=== PATIENT | female | born 1980 | race Caucasian/White ===

== ENCOUNTER 2018-11-12 00:51 | Observation (INO) | payer MEDICAID, OTHER ==
[~2018-11-12] VITALS: Ht 160 cm; Wt 73.4 kg
--- NOTE | 2018-11-12 01:55 | ERD ---
ER Documentation Chief Complaint Chief Complaint DX ECTOPIC PREGNENCY AT [facility].LL PELVIC PAIN HPI This is a 38-year-old female who presents emergency department with complaints of pelvic pain. Stated that she was diagnosed with ectopic at another [facility] in [facility]. Stated that her OB suspected that she has an ectopic that is why she was sent to the ER. The ER discharge her and was told to come here at [facility] because her OB works here. LMP: 09/11/2018. A0. ROS All systems reviewed and are negative except as per history of present illness. Medications Home Meds No Active Prescriptions or Reported Meds Allergies Allergies: Coded Allergies: No Known Allergy (Unverified , 11/12/18) Physical Exam Vitals Vital Signs Date Temp Pulse Resp B/P (MAP) Pulse Ox O2 O2 Flow FiO2 Time Delivery Rate 11/12/18 99.7 91 18 137/65 98 01:06 (89) Physical Exam Const: No acute distress Head: Atraumatic Eyes: Normal Conjunctiva ENT: Normal External Ears, Nose and Mouth. Neck: Full range of motion. No meningismus. Resp: Clear to auscultation bilaterally Cardio: Regular rate and rhythm, no murmurs Abd: Soft, non tender, non distended. Normal bowel sounds Skin: No petechiae or rashes Back: No midline or flank tenderness. No CVA tenderness. Ext: No cyanosis, or edema Neur: Awake and alert Psych: Normal Mood and Affect Result Diagram: 11/12/18 02111/12/18 0212 Results 24 hrs Laboratory Tests Test 11/12/18 02:11 11/12/18 02:12 Urine Color YELLOW Urine Clarity SLIGHTLY CLOUDY Urine pH 5.0 Urine Specific [place] 1.020 Urine Ketones TRACE mg/dL Urine Nitrite NEGATIVE mg/dL Urine Bilirubin NEGATIVE mg/dL Urine Urobilinogen NEGATIVE mg/dL Urine Leukocyte Esterase TRACE Janell/ul Urine Microscopic RBC 0 /HPF Urine Microscopic WBC 2 /HPF Urine Bacteria FEW /HPF Urine Mucus FEW /HPF Urine Hemoglobin 1+ mg/dL Urine Glucose NEGATIVE mg/dL Urine Total Protein NEGATIVE mg/dl White Blood Count 9.2 10^3/ul Red Blood Count 4.73 10^6/ul Hemoglobin 12.6 g/dl Hematocrit 39.7 % Mean Corpuscular Volume 83.9 fl Mean Corpuscular Hemoglobin 26.6 pg Mean Corpuscular Hemoglobin Concent 31.7 g/dl Red Cell Distribution Width 15.1 % Platelet Count 357 10^3/UL Mean Platelet Volume 9.6 fl Immature Granulocytes % 0.700 % Neutrophils % 59.9 % Lymphocytes % 27.7 % Monocytes % 10.2 % Eosinophils % 1.1 % Basophils % 0.4 % Nucleated Red Blood Cells % 0.0 /100WBC Immature Granulocytes # 0.060 10^3/ul Neutrophils # 5.5 10^3/ul Lymphocytes # 2.6 10^3/ul Monocytes # 0.9 10^3/ul Eosinophils # 0.1 10^3/ul Basophils # 0.0 10^3/ul Nucleated Red Blood Cells # 0.0 10^3/ul Prothrombin Time 12.6 Sec Prothrombin Time Ratio 1.0 INR International Normalized Ratio 0.93 Activated Partial Thromboplast Time 27.9 Sec Sodium Level 140 mmol/L Potassium Level 3.6 mmol/L Chloride Level 108 mmol/L Carbon Dioxide Level 21 mmol/L Anion Gap 11 Blood Urea Nitrogen 8 mg/dl Creatinine 0.44 mg/dl Est Glomerular Filtrat Rate mL/min > 60 mL/min Glucose Level 106 mg/dl Calcium Level 9.2 mg/dl Total Bilirubin 0.6 mg/dl Direct Bilirubin 0.00 mg/dl Indirect Bilirubin 0.6 mg/dl Aspartate Amino Transf (AST/SGOT) 30 IU/L Alanine Aminotransferase (ALT/SGPT) 40 IU/L Alkaline Phosphatase 96 IU/L Total Protein 7.8 g/dl Albumin 4.3 g/dl Globulin 3.50 g/dl Albumin/Globulin Ratio 1.22 Amylase Level 74 U/L Lipase 60 U/L Beta HCG, Quantitative 5220.0 mIU/ml Current Medications Medications Dose Sig/Taco Start Time Status Last (Trade) Ordered Route PRN Stop Time Admin Dose Reason Admin Sodium 1,000 ml @ Q1H ONCE 11/12/18 DC 11/12/18 Chloride 1,000 mls/hr IV 02:00 03:16 11/12/18 02:59 Procedures/MDM Diagnostic tests: Urinalysis: Reviewed. Culture urine: Sent. Type and Rh: A positive. HCG quantitative: 5220.0 Complete blood works: Reviewed. OB ultrasound: Enlarged fibroid uterus including adjacent posterior submucosal fibroids which distort the endometrial contour, that itself appears thickened, without evidence of intrauterine gestation. As seen only on transabdominal imaging there is a large round solid appearing structure alongside the left posterior uterine fundus and adnexal region, which may represent a large exophytic or pedunculated fibroid although the possibility of an ectopic gestation is not entirely excluded. Notably, no free fluid is seen within the pelvis. The findings could be correlated clinically including with serial beta HCG levels, and short-term follow-up ultrasound to reevaluate. Probable hemorrhagic versus corpus luteal cyst within both ovaries. This can be reassessed on follow-up to evaluate for resolution. Results called to the ordering clinician Jose Santos at time of dictation 0333 hours. Called OB, Dr. Perry, and discussed with him the patient's case, results from another hospital. Stated to wait for the imaging, blood works here in the emergency department then inform her of the results. Informed OBYakov of the US results. She also examined the patient and decided to admit the patient under her name with diagnosis of adnexal mass. Treatment: Saline lock. Normal saline IV bolus. Re-evaluation: Minimal pain. Denies active bleeding. Differential diagnosis Low suspicion for hemorrhaging, ruptured ectopic . Final diagnosis: Adnexal mass Supervising physician, Dr. Tonya Stanley made aware of the admission. Departure Diagnosis: Primary Impression: Adnexal mass Additional Impressions: Pelvic pain affecting Pelvic pain affecting in first trimester, antepartum Condition: Stable JOSE SANTOS Nov 12, 2018 01:55
[2018-11-12] MEDS ORDERED: SOD CHLORIDE 0.9% 1,000 ML IV ONE (02:00)
[2018-11-12] MEDS ORDERED: ACETAMINOPHEN 325 MG TAB PO PRN (05:30)
[2018-11-12] MEDS ORDERED: ONDANSETRON 4 MG INJ IV PRN (05:30)
--- NOTE | 2018-11-12 06:16 | HP ---
Date/Time of Note Date/Time of Note DATE: 11/12/18 TIME: 05:49 Assessment/Plan VTE Prophylaxis SCD applied (from Ns): Yes SCD contraindicated: low risk/ambulating Pharmacological prophylaxis: other (Patient is ambulating, SCDs ordered.) Pharm contraindication: low risk/ambulating, other (She is currently ambulating, SCD ordered no need for pharmacologic prophylaxis at this time) Lines/Catheters IV Catheter Type (from [facility]): Saline Lock Central line still needed: No Urinary Cath still in place: No Assessment/Plan Assessment/Plan 38 years old 1 with positive prep test(8414 on 11/11/2018 at 1800 decreased to 5220 in approximately 8 hours), left adnexal mass and multiple uterine leiomyoma (please see the ultrasound results above for detail). Physical exam,labs, ultrasound discussed in detail with patient. She expressed understanding. All of her questions answered. She was admitted for close observation. -CBC blood type and screen -Repeat beta-hCG in 24 hours -N.p.o. from midnight -Follow-up by laborist Result Diagram: 11/12/18 0212 11/12/18 0212 Results 24hrs Laboratory Tests Test 11/12/18 02:11 11/12/18 02:12 Urine Color YELLOW Urine Clarity SLIGHTLY CLOUDY A Urine pH 5.0 Urine Specific [place] 1.020 Urine Ketones TRACE A Urine Nitrite NEGATIVE Urine Bilirubin NEGATIVE Urine Urobilinogen NEGATIVE Urine Leukocyte Esterase TRACE A Urine Microscopic RBC 0 Urine Microscopic WBC 2 Urine Bacteria FEW A Urine Mucus FEW A Urine Hemoglobin 1+ H Urine Glucose NEGATIVE Urine Total Protein NEGATIVE White Blood Count 9.2 Red Blood Count 4.73 Hemoglobin 12.6 Hematocrit 39.7 Mean Corpuscular Volume 83.9 Mean Corpuscular Hemoglobin 26.6 L Mean Corpuscular Hemoglobin Concent 31.7 L Red Cell Distribution Width 15.1 H Platelet Count 357 Mean Platelet Volume 9.6 Immature Granulocytes % 0.700 H Neutrophils % 59.9 Lymphocytes % 27.7 Monocytes % 10.2 Eosinophils % 1.1 Basophils % 0.4 Nucleated Red Blood Cells % 0.0 Immature Granulocytes # 0.060 H Neutrophils # 5.5 Lymphocytes # 2.6 Monocytes # 0.9 Eosinophils # 0.1 Basophils # 0.0 Nucleated Red Blood Cells # 0.0 Prothrombin Time 12.6 Prothrombin Time Ratio 1.0 INR International Normalized Ratio 0.93 Activated Partial Thromboplast Time 27.9 Sodium Level 140 Potassium Level 3.6 Chloride Level 108 Carbon Dioxide Level 21 Anion Gap 11 Blood Urea Nitrogen 8 Creatinine 0.44 Est Glomerular Filtrat Rate mL/min > 60 Glucose Level 106 Calcium Level 9.2 Total Bilirubin 0.6 Direct Bilirubin 0.00 Indirect Bilirubin 0.6 Aspartate Amino Transf (AST/SGOT) 30 Alanine Aminotransferase (ALT/SGPT) 40 Alkaline Phosphatase 96 Total Protein 7.8 Albumin 4.3 Globulin 3.50 H Albumin/Globulin Ratio 1.22 Amylase Level 74 Lipase 60 Beta HCG, Quantitative 5220.0 HPI/ROS Admit Date/Time Admit Date/Time 11/12/2018 Hx of Present Illness 38 years old 1 with LMP of 09/11/2019 presents to [facility] for vaginal spotting. She was seen by Dr. Judd Prescott (primary MEDICAL DOCTOR NUCLE[facility] MEDICINE) and sent to [facility] for further evaluation. The patient states had vaginal spotting in the last 1 week. She denies severe vaginal bleeding, clots or tissue passing. - Ultrasound at [facility]: enlarged and leiomyomatous uterus measuring 13.1 cm in length. There is a large abnormal left adnexal mass. No free fluid in cul-de-sac seen. No intrauterine . Findings are highly suspicious for ectopic . -Laboratory workup: Normal CBC, CMP. Beta-hCG 8414 which done 11/11/2018 at 1800 I received a call from [facility] for transferring patient here. I accept the transfer however as there was no available bed here, the [facility] charge nurse called me and informed me they are planning to transfer the patient at [facility]. However the patient came to the [facility] emergency department. Evaluation in our emergency department: - Ultrasound: Enlarged lobulated appearance of the uterus, measuring 9.3 x 8.5 x 6.8 cm on transabdominal imaging where there is an adjacent round solid appearing structure measuring 9.1 x 8.1 x 6.7 cm seen along the left posterior fundal/adnexal level. As better seen on transvaginal imaging, there are several fibroids present within the uterus, including two adjacent posterior submucosal fibroids, the larger and more superior of which measures 3.2 x 2.3 cm. There is associated distortion of the endometrial stripe, the thickness of which was measured at 24 mm although appears overestimated and includes volume averaging with an adjacent fibroid, by my measurement is approximately 11 mm. In either case, no intrauterine gestational sac is present. Tiny cervical Nabothian cysts are seen more inferiorly. Of note, the large left periuterine abnormality seen on transabdominal imaging is not clearly visualized on endovaginal imaging. The right ovary measures 3.5 x 2.3 x 2.0 cm, contains an ovoid hypoechoic 2.0 x 1.5 cm focus with increased through transmission suggesting a hemorrhagic cyst within. The left ovary measures 3.9 x 3.4 x 1.8 cm, and contains an ovoid hypoechoic 2.4 x 1.0 cm cysts, perhaps also a hemorrhagic or compress luteal cyst, within. No free fluid. IMPRESSION: Enlarged fibroid uterus including adjacent posterior submucosal fibroids which distort the endometrial contour, that itself appears thickened, without evidence of intrauterine gestation. As seen only on transabdominal imaging there is a large round solid appearing structure alongside the left posterior uterine fundus and adnexal region, which may represent a large exophytic or pedunculated fibroid although the possibility of an ectopic gestation is not entirely excluded. Notably, no free fluid is seen within the pelvis. The findings could be correlated clinically including with serial beta HCG levels, and short-term follow-up ultrasound to reevaluate. Probable hemorrhagic versus corpus luteal cyst within both ovaries. This can be reassessed on follow-up to evaluate for resolution. Results called to the ordering clinician Marielena Santos at time of dictation 0333 hours. -Laboratory workup: Blood type A positive, hemoglobin 12.6 hematocrit 39.7, platelet 357. Normal CMP. Beta-hCG 5220 ROS Additional Comments Review of all systems are negative except as noted at the history of present illness PMH/Family/Social Past Medical History Medical History: high cholesterol, other Medications Current Medications Ondansetron HCl (Zofran Inj) 4 mg BRIDGE ORDER PRN IV NAUSEA/VOMITING; Start 11/12/18 at 05:30; Stop 11/13/18 at 05:29 Acetaminophen (Tylenol Tab) 650 mg ER BRIDGE PRN PO .MILD PAIN 1-3 OR TEMP; Start 11/12/18 at 05:30; Stop 11/13/18 at 05:29 Coded Allergies: No Known Allergy (Unverified , 11/12/18) Past Surgical History Past Surgical Hx: no surgical history Family History Significant Family History: no pertinent family hx Social History Alcohol Use: none Smoking Status: Never smoker Drug Use: none Exam/Review of Systems Vital Signs Vitals Vital Signs Date Temp Pulse Resp B/P (MAP) Pulse Ox O2 O2 Flow FiO2 Time Delivery Rate 11/12/18 99.7 91 18 137/65 98 01:06 (89) Intake and Output 11/11/18 11/11/18 11/12/18 1515:00 23:00 07:00 IntakeIntake Total 1000 ml BalanceBalance 1000 ml Exam Constitutional: alert, oriented, well developed Head: normocephalic Eyes: nl conjunctiva ENMT: nl external ears & nose Neck: supple, non-tender Respiratory: clear to auscultation Cardiovascular: regular rate and rhythm Gastrointestinal: soft, nl liver, spleen, non-tender Genitourinary - Female: other (External genitalia within normal limits. Vagina with minimal discharge. Cervix newly parous without lesion. Uterus 8 weeks, mobile, nontender. Adnexa no palpable mass bilateral. Accuracy of pelvic exam is limited due to body habitus) Musculoskeletal: nl extremities to inspection, nl gait and stance Neurological: nl mental status, nl speech JUANA GR Nov 12, 2018 06:04
[2018-11-12 18:29] VITALS: BP 146/76; PULSE 90; RESP 20
[2018-11-12] MEDS: DEXTROSE 5%-LR 1,000 ML IV SCH (18:34)
[2018-11-12 18:43] VITALS: Ht 160 cm; Wt 73.4 kg
[2018-11-12 19:21] VITALS: BP 120/63; PULSE 90; RESP 18
[2018-11-13] VITALS (35 sets, daily range): BP systolic 91–124; BP diastolic 50–76; PULSE 72–98; RESP 16–27
[2018-11-13] MEDS: DEXTROSE 5%-LR 1,000 ML IV SCH ×3 (02:09→22:59)
[2018-11-13] MEDS ORDERED: METOCLOPRAMIDE 10 MG INJ ONE (07:00)
[2018-11-13] MEDS ORDERED: CEFAZOLIN 1 GM INJ ONE (07:00)
[2018-11-13] MEDS ORDERED: DEXAMETHASONE 4 MG/ML 5 ML INJ ONE (07:00)
[2018-11-13] MEDS ORDERED: METOPROLOL 5 MG INJ ONE (07:00)
[2018-11-13] MEDS ORDERED: FENTAnyl 50 MCG/ML VIAL ONE (14:18)
[2018-11-13] MEDS ORDERED: LIDOCAINE 2% (SDV) 5 ML INJ ONE (14:19)
[2018-11-13] MEDS ORDERED: ONDANSETRON 4 MG INJ ONE (14:19)
[2018-11-13] MEDS ORDERED: ROCURONIUM 50 MG INJ ONE (14:19)
[2018-11-13] MEDS ORDERED: SUCCINYLCHOLINE CHLORIDE 100 MG/5 ML SYG IV ONE (14:19)
[2018-11-13] MEDS ORDERED: PROPOFOL 20 ML ONE (14:19)
[2018-11-13] MEDS ORDERED: MIDAZOLAM 1 MG/ML 2 ML INJ ONE (14:19)
--- NOTE | 2018-11-13 16:02 | PREAC ---
Date/Time of Note Date/Time of Note DATE: 11/13/18 TIME: 16:00 Anesthesia Eval and Record Evaluation Time Pre-Procedure Interview DATE: 11/13/18 TIME: 16:00 Age 38 Sex female NPO: 8 hrs Preoperative diagnosis ectopic Planned procedure mini-laparotomy for removal ectopic Past Medical History Past Medical History: Includes : Other (ectopic ) Surgery & Anesthesia Issues No known issue Meds Anticoagulation: No Beta Justine within 24 hr: No Reason Beta Justine not given: Pt. not on B-Justine No Active Prescriptions or Reported Meds Current Medications Dextrose/Lactated Ringer's 1,000 ml @ 125 mls/hr Q8H IV Last administered on 11/13/18at 12:01; Admin Dose 125 MLS/HR; Start 11/12/18 at 18:30 Meds reviewed: Yes Allergies Coded Allergies: No Known Allergy (Unverified , 11/12/18) Allergies Reviewed: Yes Labs/Studies Labs Reviewed: Reviewed by anesthesiologist Result Diagram: 11/12/1821111/12/18211 test: Positive Pre-procedure Exam Last vitals Vital Signs Date Temp Pulse Resp B/P (MAP) Pulse Ox O2 O2 Flow FiO2 Time Delivery Rate 11/13/18 98.5 77 16 124/76 99 13:47 (92) 11/13/18 Room Air 02:00 Airway: Adequate mouth opening, Adequate thyromental dist Mallampati: Mallampati III Teeth: Normal Lung: Normal Heart: Normal ASA Physical Status ASA physical status: 2 Emergency: E Planned Pain Management Single shot nerve block, Parenteral pain med, Local by surgeon Pre-operative Attestations Prior to commencing anesthesia and surgery, the patient was re-evaluated, there was verification of: *The patient's identity *The results of appropriate recent lab work and preoperative vital signs *The above evaluation not changing prior to induction *Anesthetic plan, risk benefits, alternative and complications discussed with patient/family; questions answered; patient/family understands, accepts and wishes to proceed. ELSA AMARO MD Nov 13, 2018 16:02
[2018-11-13] MEDS ORDERED: ROPIVACAINE 0.5 % 30 ML VIAL ONE (16:04)
[2018-11-13] MEDS ORDERED: DIPHENHYDRAMINE 50 MG INJ IV PRN (16:30)
[2018-11-13] MEDS ORDERED: ONDANSETRON 4 MG INJ IV PRN (16:30)
[2018-11-13] MEDS ORDERED: LEVALBUTEROL (NEB) 1.25 MG/0.5 ML AMP HHN PRN (16:30)
[2018-11-13] MEDS ORDERED: HYDROmorphONE 1 MG/5 ML IV SYRINGE IV PRN ×3 (16:30)
[2018-11-13] MEDS ORDERED: MEPERIDINE 25 MG INJ IV PRN (16:30)
[2018-11-13] MEDS ORDERED: KETOROLAC 30 MG INJ IV PRN (16:30)
[2018-11-13] MEDS ORDERED: FENTAnyl 50 MCG/ML VIAL IV PRN ×2 (16:30)
[2018-11-13] MEDS ORDERED: morphine SULFATE/PF (10 MG/10 ML) INJ ONE (16:39)
[2018-11-13] MEDS ORDERED: SUGAMMADEX SODIUM 200 MG/2 ML VIAL IV ONE (17:29)
--- NOTE | 2018-11-13 17:39 | OPPN ---
Date/Time of Note Date/Time of Note DATE: 11/13/18 TIME: 17:37 Operative Report Planned Procedure Procedure date Nov 13, 2018 Procedure(s) D&C&suction Diagnostic laparoscopy Performed by see signature line Keyliner: A 2nd Keyliner none Pre-procedure diagnosis Possible Ectopic and Incomplete [id number] Anesthesia Type: [id number] general Post-Procedure Post-procedure diagnosis Incomplete Findings Live Baby [], Apgars [] and [], weight [], position [], [] presentation []cord. Estimated Blood Loss: 0 - 10 mls Specimen(s) none Grafts/Implant(s) none Complication(s) none CHIN HARDIN M.D. Nov 13, 2018 17:39
--- NOTE | 2018-11-13 17:54 | PAC ---
Date/Time of Note Date/Time of Note DATE: 11/13/18 TIME: 17:54 Post-Anesthesia Notes Post-Anesthesia Note Last documented vital signs Vital Signs Date Temp Pulse Resp B/P (MAP) Pulse Ox O2 O2 Flow FiO2 Time Delivery Rate 11/13/18 98.5 77 16 124/76 99 13:47 (92) 11/13/18 Room Air 02:00 Activity: WNL Respiratory function: WNL Cardiovascular function: WNL Mental status: Baseline Pain reasonably controlled: Yes Hydration appropriate: Yes Nausea/Vomiting absent: Yes ELSA AMARO MD Nov 13, 2018 17:54
[2018-11-13] MEDS ORDERED: IBUPROFEN 600 MG TAB NGT PRN (18:00)
[2018-11-13] MEDS ORDERED: OXYCODONE/ACETAMINOPHEN (5/325) TAB PO PRN (18:00)
--- NOTE | 2018-11-13 19:03 | OPR ---
DATE OF OPERATION: 11/13/2018 PREOPERATIVE DIAGNOSIS: Possible ectopic versus incomplete . POSTOPERATIVE DIAGNOSIS: Incomplete , fibroid uterus. TECHNIQUE: The patient was taken to the operating room where general anesthesia was found to be adeq uate. The patient was placed in dorsal lithotomy position. After prep and drape, a weighted speculu m was placed inside the vaginal vault. Anterior lip of the cervix was grasped by single-tooth tenacu lum. Cervix was dilated by Espinosa dilators. Suction size 8 was inserted. Intrauterine cavity was marino ctioned. Sharp curettage of endometrial cavity was done. Then, HUMI was inserted. Attention was tu rned to abdominal field. A 1 cm incision was made above the umbilicus. First trocar was inserted un edwige direct visualization of the camera. Intra-abdominal cavity was filled up using 4 liters of CO2. Second and third trocars were inserted 10 cm from the first one on both sides of the patient and the n around 10 x 15 cm fundal pedunculated fibroid were noticed. Both ovaries and tubes were examined a nd cul-de-sac were examined. There was no sign of any ectopic . The patient tolerated the procedure well and was transferred to recovery room in stable condition. There was no complication r egarding this surgery. Dictated By: CHIN HARDIN MD RG/HARPREET Conf#: [id number] DID#: [id number] CC: JUANA GR MD;*EndCC*
--- NOTE | 2018-11-13 19:10 | OPR ---
DATE OF OPERATION: 11/13/2018 PREOPERATIVE DIAGNOSIS: Possible ectopic versus ectopic versus incomplete . POSTOPERATIVE DIAGNOSIS: Incomplete . OPERATION PERFORMED: D and C and suction, diagnostic laparoscopy. ANESTHESIOLOGIST: Jossue ____ Jeffery ESTIMATED BLOOD LOSS: Minimal. COMPLICATIONS: None. DESCRIPTION OF PROCEDURE: The patient was taken to the operating room where general anesthesia was f ound to be adequate. The patient was placed in dorsal lithotomy position. After prep and drape, a 1 cm incision was made above the umbilicus. First trocar was inserted under direct visualization of t he camera. Intra-abdominal cavity was filled up using 4 liters of CO2. Second and third trocar was inserted both sides 8 to 10 cm from the first one. There was a 10 x 15 cm pedunculated fibroid that was noticed to the right and left tube were examined and cul-de-sac were examined. There was no sign of ectopic . Gas was removed. The trocars were removed under direct visualization of the camera. The skin incisions were closed. Dictated By: CHIN SELLERS/HARPREET Conf#: [id number] DID#: [id number]
[2018-11-14 00:01] VITALS: BP 112/63; PULSE 87; RESP 18
[2018-11-14] MEDS: DEXTROSE 5%-LR 1,000 ML IV SCH ×3 (02:30→10:30)
[2018-11-14 08:00] VITALS: BP 112/68; PULSE 76; RESP 18
--- NOTE | 2018-11-14 12:33 | QN ---
Documentation Comment The first dictation note is incomplete and needs to be voided CHIN HARDIN M.D. Nov 14, 2018 12:33
--- NOTE | 2018-11-14 12:35 | QN ---
Documentation Comment POD#1 is stable afebrile tolerates diet No VB minimum pain Vs stable Gen NAD Abd soft NT ND Incisions are intact Genitalia No blood at perineum --->Discharged with precautions -->Questions answered --->follow up with provider CHIN HARDIN M.D. Nov 14, 2018 12:35
--- NOTE | 2018-11-14 12:37 | DS ---
Date/Time of Note Date/Time of Note DATE: 11/14/18 TIME: 12:36 Discharge Summary Admission/Discharge Info Admit Date/Time Nov 12, 2018 at 05:13 Discharge Date/Time 11/14/2018 Discharge Diagnosis Incomplete Patient Condition: Good Procedures D&C&suction and Diagnostic laparoscopy Hospital Course uneventful Home Meds No Active Prescriptions or Reported Meds Primary Care Provider Care Physician No Primary Pending Labs Laboratory Tests Test 11/14/18 04:44 Beta HCG, Quantitative 1585.1 mIU/ml CHIN HARDIN M.D. Nov 14, 2018 12:37
== END 2018-11-14 11:45 | disposition home or self-care (01) ==
LOC: FTE 00:51 → 2NE 05:13 → EDBEDREQSVC 17:02 → MS1 11-13 20:20
PROVIDERS: ADMIT Obstetrics & Gynecology; ATTEND Obstetrics & Gynecology
DX: O03.4 Incomplete spontaneous abortion without complication (principal); D25.9 Leiomyoma of uterus, unspecified
CPT/HCPCS: 49320; 59812; 76801; 76817; 80053; 81001; 82150; 83690; 84702; 85025; 85610; 85730; 86850; 86900; 86901; 87086; 88305; J0690; J1100; J2250; J2274; J2405; J2765; J2795; J3010; J7030; J7121; Z7500; Z7512; Z7610; G0378

== ENCOUNTER 2019-03-24 07:49 | Observation (INO) | payer OTHER ==
[2019-03-23 14:32] VITALS: BMI 32.3
[~2019-03-24] VITALS: Ht 152.4 cm; Wt 74.6 kg
[2019-03-24] VITALS (23 sets, daily range): BP systolic 99–140; BP diastolic 53–73; PULSE 74–112; RESP 14–23; Ht 152.4 cm; Wt 74.6 kg
[2019-03-24] MEDS ORDERED: ATOR10TA65 PO (08:47)
--- NOTE | 2019-03-24 10:12 | PREAC ---
Date/Time of Note Date/Time of Note DATE: 03/24/19 TIME: 10:11 Anesthesia Eval and Record Evaluation Time Pre-Procedure Interview DATE: 03/24/19 TIME: 10:11 Age 38 Sex female NPO: 8 hrs Preoperative diagnosis UTERINE FIBROIDS Planned procedure MORA Past Medical History Past Medical History: Includes Cardio: Dyslipidemia GI: Obesity Surgery & Anesthesia Issues No known issue Meds Anticoagulation: No Beta Justine within 24 hr: No Reason Beta Justine not given: Pt. not on B-Justine Reported Medications Atorvastatin Calcium (Atorvastatin Calcium) 10 Mg Tablet, 10 MG PO QHS, #30 TAB 03/24/19 Meds reviewed: Yes Allergies Coded Allergies: No Known Allergy (Unverified , 03/24/19) Allergies Reviewed: Yes Labs/Studies Labs Reviewed: Reviewed by anesthesiologist Result Diagram: 03/24/19 0903 Laboratory Tests 03/24/19 09:03 Blood Bank Test 03/24/19 09:03 Antibody Screen NEGATIVE Blood Type A POSITIVE test: Negative Pre-procedure Exam Last vitals Vital Signs Date Temp Pulse Resp B/P (MAP) Pulse Ox O2 O2 Flow FiO2 Time Delivery Rate 03/24/19 98.1 83 16 128/73 97 Room Air 09:02 (91) Airway: Adequate mouth opening, Adequate thyromental dist Mallampati: Mallampati II Teeth: Normal Lung: Normal Heart: Normal ASA Physical Status ASA physical status: 2 Emergency: None Planned Anesthetic General/MAC: ETT Planned Pain Management Parenteral pain med Pre-operative Attestations Prior to commencing anesthesia and surgery, the patient was re-evaluated, there was verification of: *The patient's identity *The results of appropriate recent lab work and preoperative vital signs *The above evaluation not changing prior to induction *Anesthetic plan, risk benefits, alternative and complications discussed with patient/family; questions answered; patient/family understands, accepts and wishes to proceed. Alli Crump M.D. Mar 24, 2019 10:12
[2019-03-24] MEDS ORDERED: ONDANSETRON 4 MG INJ ONE ×2 (11:00→14:22)
[2019-03-24] MEDS ORDERED: CEFAZOLIN 1 GM INJ ONE (11:00)
[2019-03-24] MEDS ORDERED: NEOSTIGMINE 3 MG/3 ML SYRINGE ONE (11:00)
[2019-03-24] MEDS ORDERED: PROPOFOL 20 ML ONE (11:00)
[2019-03-24] MEDS ORDERED: GLYCOPYRROLATE 0.4 MG INJ ONE (11:00)
[2019-03-24] MEDS ORDERED: ROCURONIUM 50 MG INJ ONE (11:00)
[2019-03-24] MEDS ORDERED: FENTAnyl 50 MCG/ML VIAL ONE ×3 (11:00→14:22)
[2019-03-24] MEDS ORDERED: MIDAZOLAM 1 MG/ML 2 ML INJ ONE (11:00)
[2019-03-24] MEDS ORDERED: morphine SULFATE/PF (10 MG/10 ML) INJ ONE (11:01)
[2019-03-24] MEDS ORDERED: DEXAMETHASONE 4 MG/ML 5 ML INJ ONE (11:01)
[2019-03-24] MEDS ORDERED: ROPIVACAINE 0.5 % 30 ML VIAL ONE (11:46)
--- NOTE | 2019-03-24 14:14 | OPPN ---
Date/Time of Note Date/Time of Note DATE: 03/24/19 TIME: 14:09 Operative Report Preoperative Diagnosis Fibroid uterus Menorrhagia Postoperative Diagnosis same Operation/Procedure Performed D&C&Hysteroscopy ,Diagnostic laparoscopy Abdominal myomectomy Surgeon see signature line logistics assistant tech Anesthesia: general Estimated blood loss: 150 - 200 ml's Transfusion Required none Specimen myoma ECC and Emc Grafts/Implants none Complications none CHIN HARDIN M.D. Mar 24, 2019 14:14
--- NOTE | 2019-03-24 14:26 | PAC ---
Date/Time of Note Date/Time of Note DATE: 03/24/19 TIME: 14:26 Post-Anesthesia Notes Post-Anesthesia Note Last documented vital signs Vital Signs Date Temp Pulse Resp B/P (MAP) Pulse Ox O2 O2 Flow FiO2 Time Delivery Rate 03/24/19 99.3 14:15 03/24/19 83 16 128/73 97 Room Air 09:02 (91) Activity: WNL Respiratory function: WNL Cardiovascular function: WNL Mental status: Baseline Pain reasonably controlled: Yes Hydration appropriate: Yes Nausea/Vomiting absent: Yes Alli Crump M.D. Mar 24, 2019 14:26
[2019-03-24] MEDS ORDERED: TRIMETHOBENZAMIDE 100 MG/ML VIAL IM PRN (14:30)
[2019-03-24] MEDS ORDERED: ONDANSETRON 4 MG INJ IV PRN (14:30)
[2019-03-24] MEDS ORDERED: DIPHENHYDRAMINE 50 MG INJ IV PRN (14:30)
[2019-03-24] MEDS ORDERED: IPRATROPIUM (NEB) 0.5 MG/2.5 ML AMP HHN PRN (14:30)
[2019-03-24] MEDS ORDERED: HYDROmorphONE 1 MG/5 ML IV SYRINGE IV PRN ×3 (14:30)
[2019-03-24] MEDS ORDERED: EPHEDrine 25 MG/5 ML SYG IV PRN (14:30)
[2019-03-24] MEDS ORDERED: MEPERIDINE 25 MG INJ IV PRN (14:30)
[2019-03-24] MEDS ORDERED: MIDAZOLAM 1 MG/ML 2 ML INJ IV PRN (14:30)
[2019-03-24] MEDS ORDERED: LABETALOL HCL 20MG INJ IV PRN (14:30)
[2019-03-24] MEDS ORDERED: OXYCODONE/ACETAMINOPHEN (5/325) TAB PO PRN ×3 (14:30→18:00)
[2019-03-24] MEDS ORDERED: hydrALAzine 20 MG INJ IV PRN (14:30)
[2019-03-24] MEDS ORDERED: ALBUTEROL 0.083% (NEB) 2.5 MG/3 ML AMP HHN PRN (14:30)
[2019-03-24] MEDS ORDERED: FENTAnyl 50 MCG/ML VIAL IV PRN ×3 (14:30)
[2019-03-24] MEDS: IBUPROFEN 600 MG TAB PO SCH ×2 (18:00→20:37)
[2019-03-24] MEDS ORDERED: ONDANSETRON 4 MG TAB PO PRN (19:00)
[2019-03-24] MEDS: LACTATED RINGER'S 1,000 ML IV SCH (19:23)
[2019-03-24] MEDS ORDERED: ATORVASTATIN 10 MG TAB PO SCH (21:00)
[2019-03-24] MEDS: CEFAZOLIN 2 GM/50 ML (PMX) 50 ML IVPB SCH (21:05)
--- NOTE | 2019-03-24 23:54 | QN ---
Documentation Comment Patient is seen by the bedside Feels ok minimum pain +Faltus +Adequate urine VS stable Mildly tachycardia Hb 12.3 GEN NAD ABD SOFT ND Genitalia No blood at perineum ---ambulation ---discharge plan tomorrow CHIN HARDIN M.D. Mar 24, 2019 23:54
[2019-03-25] VITALS: BP 113/60; PULSE 107; RESP 20
[2019-03-25] MEDS: LACTATED RINGER'S 1,000 ML IV SCH (02:30)
[2019-03-25] MEDS: CEFAZOLIN 2 GM/50 ML (PMX) 50 ML IVPB SCH ×2 (03:12→10:14)
--- NOTE | 2019-03-25 04:43 | OPR ---
DATE OF OPERATION: 03/24/2019 PREOPERATIVE DIAGNOSES: 1. Fibroid uterus. 2. Menorrhagia. POSTOPERATIVE DIAGNOSES: 1. Fibroid uterus. 2. Menorrhagia. OPERATION: D and C and hysteroscopy, diagnostic laparoscopy, abdominal myomectomy. ATTENDING SURGEON: Chin Galvez MD. ANESTHESIOLOGIST: Pavithra sahni. ESTIMATED BLOOD LOSS: 150 mL to 200 mL. COMPLICATIONS: None. ATTENDING ANESTHESIOLOGIST: Dr. Crump. TYPE OF ANESTHESIA: General. COMPLICATIONS: None. DESCRIPTION OF PROCEDURE: The patient was taken to the operating room where general anesthesia was f ound to be adequate. The patient was placed in dorsal lithotomy position and after prep and drape, a weighted speculum was placed inside the vaginal vault. Anterior lip of the cervix was grasped by si ngle-tooth tenaculum. Cervix was dilated by Espinosa dilators. Endocervical curet was done and sent to Pathology. Then, hysteroscope was inserted. Cavity was evaluated. There was no submucosal fibroid in the uterine endometrial lining and then the endometrial curet was done. Then, HUMI was inserted. Attention was turned to abdominal field. A 1 cm incision was made above the umbilicus and first tr ocar was inserted under direct visualization of the camera. Second trocar was inserted 8 to 10 cm fr om the first one and on the left side. Then, uterus and fibroids were evaluated. There was a large size of the fibroid around 7 x 8 cm, it was a fundal fibroid and it seems that it was subserosal and submucosal. There were a few fibroids that attaching this complex. Trocars were removed. Gas was r emoved and then 4 to 5 cm midline incision was made and a rubber retractor was inserted. Then, the c omplex of fibroids exteriorized and using the Bovie, it was removed from the uterus using Vicryl and Monocryl sutures and PDS sutures. Hemostasis achieved. Fibrillar was placed on top of the incision. There was no other fibroid found. Hemostasis achieved. Lap count was correct. Rubber retractor w as removed. Fascia and peritoneum and muscles were closed using 0 looped PDS sutures. Subcutaneous tissue was closed using plain sutures. The skin was closed using hieu. HUMI was removed. The pa tiejermaine tolerated the procedure well and was transferred to recovery room in stable condition. There w as no complication regarding this surgery. Dictated By: CHIN SELLERS/HARPREET Conf#: [id number] DID#: [id number]
--- NOTE | 2019-03-25 04:56 | HP ---
DATE OF ADMISSION: 03/24/2019 HISTORY OF PRESENT ILLNESS: A 38-year-old with a history of menorrhagia and also possible submucosal and subserosal large fibroid that was admitted for possible hysteroscopic resection of the fibroid a nd also possible laparoscopic removal of the fibroid, possible abdominal myomectomy, possible hystere ctomy. PAST MEDICAL HISTORY: Obesity. PAST SURGICAL HISTORY: Denies, although she had some laparoscopic romero on her abdomen. ALLERGIES: NKDA. PHYSICAL EXAMINATION: VITAL SIGNS: Stable. GENERAL: Normal. ABDOMEN: Obese, not tender, not distended. Fibroid is being felt by the umbilicus. ASSESSMENT AND PLAN: The patient was extensively discussed about the surgery. Alternatives, risks, and benefits of the procedure and alternatives of the procedure risks and benefits of alternatives. Patient understands that in case of the emergency, uncontrolled bleeding, she may have a hysterectomy . Procedure was discussed in detail with the patient through the translation service and the patient understood the concept and signed the consent and was taken to the operating room. Dictated By: CHIN SELLERS/HARPREET Conf#: [id number] DID#: [id number]
[2019-03-25 05:30] VITALS: BP 99/56; PULSE 95; RESP 18
[2019-03-25] MEDS: IBUPROFEN 600 MG TAB PO SCH ×2 (05:58→11:54)
[2019-03-25 08:04] VITALS: BP 110/67; PULSE 87; RESP 18
--- NOTE | 2019-03-25 11:44 | DS ---
Date/Time of Note Date/Time of Note DATE: 03/25/19 TIME: 11:42 Discharge Summary Admission/Discharge Info Admit Date/Time Mar 24, 2019 at 14:27 Discharge Date/Time Discharge Diagnosis fibroid uterus Patient Condition: Good Procedures D&C& Hysteroscopy,diagnostic laparoscopy abdominal myomectomy Hospital Course uneventful Home Meds Reported Medications Atorvastatin Calcium (Atorvastatin Calcium) 10 Mg Tablet, 10 MG PO QHS, #30 TAB 03/24/19 Primary Care Provider Care Physician No Primary Pending Labs Laboratory Tests Test 03/24/19 21:40 03/25/19 06:47 White Blood Count 14.4 10^3/ul (4.8-10.8) 20.1 10^3/ul (4.8-10.8) Red Blood Count 4.66 10^6/ul (4.20-5.40) 4.29 10^6/ul (4.20-5.40) Hemoglobin 12.3 g/dl (12.0-16.0) 11.6 g/dl (12.0-16.0) Hematocrit 37.6 % (37.0-47.0) 35.0 % (37.0-47.0) Mean Corpuscular Volume 80.7 fl (82.0-101.0) 81.6 fl (82.0-101.0) Mean Corpuscular 26.4 pg (29.0-33.0) 27.0 pg (29.0-33.0) Hemoglobin Mean Corpuscular 32.7 g/dl (32.0-37.0) 33.1 g/dl (32.0-37.0) Hemoglobin Concent Red Cell Distribution 13.8 % (11.5-14.5) 14.5 % (11.5-14.5) Width Platelet Count 378 10^3/UL (140-415) 359 10^3/UL (140-415) Mean Platelet Volume 9.9 fl (7.4-10.4) 10.5 fl (7.4-10.4) Immature Granulocytes % 0.400 % (0.001-0.429) 0.500 % (0.001-0.429) Neutrophils % 90.8 % (39.0-77.0) 83.3 % (39.0-77.0) Lymphocytes % 7.5 % (15.0-51.0) 9.6 % (15.0-51.0) Monocytes % 1.2 % (0.0-11.0) 6.5 % (0.0-11.0) Eosinophils % 0.0 % (0.0-7.0) 0.0 % (0.0-7.0) Basophils % 0.1 % (0.0-2.0) 0.1 % (0.0-2.0) Nucleated Red Blood Cells 0.0 /100WBC (0.0-0.0) 0.0 /100WBC (0.0-0.0) % Immature Granulocytes # 0.060 10^3/ul (0.0-0.031) 0.100 10^3/ul (0.0-0.031) Neutrophils # 13.0 10^3/ul (1.6-7.5) 16.8 10^3/ul (1.6-7.5) Lymphocytes # 1.1 10^3/ul (0.8-2.9) 1.9 10^3/ul (0.8-2.9) Monocytes # 0.2 10^3/ul (0.3-0.9) 1.3 10^3/ul (0.3-0.9) Eosinophils # 0.0 10^3/ul (0.0-0.5) 0.0 10^3/ul (0.0-0.5) Basophils # 0.0 10^3/ul (0.0-0.1) 0.0 10^3/ul (0.0-0.1) Nucleated Red Blood Cells 0.0 10^3/ul (0.0-0.0) 0.0 10^3/ul (0.0-0.0) # Microbiology Date/Time Source Procedure Growth Status 03/24/19 14:38 Mata Catheter Urine Culture - Preliminary NO GROWTH Resulted AFTER 24 HOURS CHIN HARDIN M.D. Mar 25, 2019 11:44
--- NOTE | 2019-03-25 11:46 | QN ---
Documentation Comment patient is comfortable sitting in bed +flatus Adequate urine VS stable Gen NAD Abd soft NT ND Incision is healing well Genit No blood at perineum --->Discharge home --->[place] will be removed in 1 week in clinic CHIN HARDIN M.D. Mar 25, 2019 11:46
[2019-03-25 14:19] VITALS: BP 139/78; PULSE 99; RESP 18
== END 2019-03-25 15:15 | disposition home or self-care (01) ==
LOC: SDS 07:49 → REC 14:27 → INTOOBSV 14:27 → MS1 15:43
PROVIDERS: ADMIT Obstetrics & Gynecology; ATTEND Obstetrics & Gynecology
DX: D25.9 Leiomyoma of uterus, unspecified (principal); N92.0 Excessive and frequent menstruation with regular cycle; E66.9 Obesity, unspecified; Z68.32 Body mass index [BMI] 32.0-32.9, adult
CPT/HCPCS: 58561; 85025; 86850; 86900; 86901; 87086; 88305; G0378; J0690; J1100; J2250; J2405; J2710; J2795; J3010; J7120; J2274